=== PATIENT | female | born 1965 | race Caucasian/White ===

== ENCOUNTER 2021-09-13 14:43 | Emergency (ER) | payer MEDICAID ==
[~2021-09-13] VITALS: Ht 160 cm; Wt 82.0 kg
[~2021-09-13 14:43] MED LIST: ENAL20TA18 PO
[2021-09-13] MEDS ORDERED: NAPR-681 PO ×2 (18:05→18:27)
[2021-09-13] MEDS ORDERED: AMOX-424 PO ×2 (18:05→18:27)
[2021-09-13] MEDS ORDERED: CLIN300C12 PO ×3 (18:05→18:27)
[2021-09-13 18:21] VITALS: BP 143/77
== END 2021-09-13 18:23 | disposition home or self-care (01) ==
LOC: ER 14:43
DX: L03.012 Cellulitis of left finger (principal)
CPT/HCPCS: 73140; 99283

== ENCOUNTER 2021-09-15 15:21 | Emergency (ER) | payer MEDICAID ==
[~2021-09-15] VITALS: Ht 160 cm; Wt 128.0 kg
[~2021-09-15 15:21] MED LIST changes: +AMOX-424 PO; +CLIN-194 PO; +NAPR-681 PO
[2021-09-15 15:30] VITALS: BP 108/65
== END 2021-09-16 01:17 | disposition home or self-care (01) ==
LOC: ER 15:21
DX: Z48.00 Encounter for change or removal of nonsurgical wound dressing (principal)
CPT/HCPCS: 99281

== ENCOUNTER 2023-06-06 14:22 | Emergency (ER) | payer MEDICAID ==
[~2023-06-06] VITALS: Ht 160 cm; Wt 120.0 kg
[~2023-06-06 14:22] MED LIST changes: +ENAL-79 PO; -ENAL20TA18 PO
[2023-06-06 14:31] VITALS: O2SAT 97
[2023-06-06 15:13] LABS: BASOPHILS % 0.6 % (0.0-2.0); EOSINOPHILS % 1.4 % (0.0-5.0); HEMATOCRIT. 30.3 % (36.0-48.0); HEMOGLOBIN. 10.1 g/dL (12.0-16.0); LYMPHOCYTES % 24.2 % (20.0-50.0); MEAN CORPUSCULAR HEMOGLOBIN 30.2 pg (28.0-32.0); MEAN CORPUSCULAR HGB CONC 33.5 g/dL (31.0-37.0); MEAN PLATELET VOLUME 7.8 fl (7.4-10.4); MONOCYTES % 6.5 % (2.0-8.0); NEUTROPHILS % 67.3 % (40.0-76.0); PLATELET 246 x1000/uL (130-400); RED BLOOD CELL COUNT 3.36 mill/uL (4.2-5.4); RED CELL DISTRIBUTION WIDTH 14.2 % (11.6-14.6); WHITE BLOOD COUNT 8.1 x1000/uL (4.5-11.0)
[2023-06-06 15:16] VITALS: TEMP 97.3
[2023-06-06 15:19] LABS: ALANINE AMINOTRANSFERASE 7 IU/L (10-49); ALBUMIN 3.8 g/dL (3.2-4.8); ASPARTATE AMINOTRANSFERASE 15 IU/L (<34); BILIRUBIN TOTAL 0.4 mg/dL (0.1-1.0); CALCIUM 7.8 mg/dL (8.7-10.4); CARBON DIOXIDE 25 mEq/L (21-32); CHLORIDE 105 mEq/L (98-107); CREATININE 0.7 mg/dL (0.6-1.0); GLUCOSE 110 mg/dL (70-105); POTASSIUM 3.6 mEq/L (3.5-5.1); PROTEIN TOTAL 6.3 g/dL (6.0-8.3); SODIUM 139 mEq/L (136-145); UREA NITROGEN BLOOD 11 mg/dL (9-23)
[2023-06-06 15:22] LABS: B-HCG QUANTITATIVE 1 mIU/mL (<3)
[2023-06-06] MEDS: ONDANSETRON 4MG ODT PO ONE (18:12)
[2023-06-06 20:28] LABS: HEMATOCRIT 28.9 % (36.0-48.0); HEMOGLOBIN 9.7 g/dL (12.0-16.0)
[2023-06-06] MEDS ORDERED: TRAN650T5 MT (20:40)
[2023-06-06] MEDS: TRANEXAMIC ACID 1,000 MG/10 ML IV ONE (21:40)
[2023-06-06 21:54] VITALS: BP 123/36; PULSE 74; RESP 19
== END 2023-06-06 21:57 | disposition home or self-care (01) ==
LOC: ER 14:22
DX: R42 Dizziness and giddiness (principal); R55 Syncope and collapse; E78.00 Pure hypercholesterolemia, unspecified
CPT/HCPCS: 80053; 84702; 85014; 85018; 85025; 86850; 86900; 86901; 36415; 76830; 76856; 96374; 99291; Q0162; Z7610 ×2